=== PATIENT | male | born 1955 | race Caucasian/White ===

== ENCOUNTER 2018-02-06 17:51 | Emergency (ER) | payer OTHER ==
[~2018-02-06] VITALS: Ht 190.5 cm; Wt 131.1 kg
[~2018-02-06 17:51] MED LIST: CLEOCIN HCL150 MG PO; CYMBALTA60 MG PO; HYDROCODONE-APA1 TA1 PO; LASIX 20 MG TAB20 MG PO; METOPROLOL SUCC50 MG PO; MOBIC15 MG PO; NEURONTIN 400M400 M2; SINGULAIR 10 MG10 M1 PO; TRAZODONE HCL50 MG PO
[2018-02-06 18:39] LABS: ABSOLUTE BASOPHILS 0.1 thou/uL (0.0-0.2); ABSOLUTE EOSINOPHILS 0.2 thou/uL (0.0-0.7); ABSOLUTE LYMPHOCYTES 1.9 thou/uL (0.8-5.3); ABSOLUTE MONOCYTES 1.1 thou/uL (0.0-1.2); ABSOLUTE NEUTROPHILS 14.2 thou/uL (1.6-8.1); BASOPHILS 0.8 %; EOSINOPHILS 1.4 %; HEMATOCRIT 46.2 % (42.0-52.0); LYMPHOCYTES 11.1 %; MCH 32.1 pg (26.0-34.0); MCHC 34.7 g/dL (28.0-37.0); MCV 92.8 fL (80.0-100.0); MPV 8.9 fl. (7.2-11.1); NUCLEATED RBCS 0 /100WBC; PLATELET COUNT* 149 thou/uL (150-400); POLYS 80.7 %; RBC 4.98 mil/uL (4.50-6.00); RDW-CV 13.4 % (10.5-14.5); WBC 17.6 thou/uL (4.0-11.0)
[2018-02-06 18:46] LABS: CALCIUM 9.1 mg/dL (8.5-10.1); CREATININE 1.5 mg/dL (0.6-1.3); POTASSIUM 3.8 mmol/L (3.5-5.1)
[2018-02-06] MEDS ORDERED: ZOFRAN4 MG PO (21:01)
[2018-02-06] MEDS ORDERED: PREDNISONE 10 M10 M1 PO (21:01)
[2018-02-06] MEDS ORDERED: LIDOCAINE VISC100 ML PO (21:03)
[2018-02-06 21:12] VITALS: BP 144/79
== END 2018-02-06 21:12 | disposition home or self-care (01) ==
LOC: M.ERS 17:51
PROVIDERS: Nurse Practitioner
DX: K20.9 Esophagitis, unspecified (principal); I10 Essential (primary) hypertension; J44.9 Chronic obstructive pulmonary disease, unspecified; F41.9 Anxiety disorder, unspecified; Z90.49 Acquired absence of other specified parts of digestive tract; Z88.0 Allergy status to penicillin